=== PATIENT | male | born 1975 | race Caucasian/White ===

== ENCOUNTER → 2018-10-13 16:44 | Outpatient (CLI) | payer BC, SELFPAY ==
[2017-07-28 20:47] VITALS: BMI 36.9
[2018-10-13 19:14] LABS: Neisserai gonorrhoeae by PCR Negative (Negative); Probe Check PASS; Sample Adequacy Control PASS; Specimen Processing Control PASS
--- OUTSIDE RECORDS SUMMARY | 2018-12-18 16:35 | XMS RPT_ITS | Clinical Summary ---
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 Allergies, Adverse Reactions, Alerts Allergy Name Reaction Description Start Date Severity Status Provider PHENOBARBITAL Critical Active Steven S Marcus Results Date Name Value Unit Range Flag Description Office Visit MEDS REVIEW Done Documentation of current medications (procedure) NKMED T Documentation of current medications (procedure) SMOK STATUS Former smoker Tobacco use [facility] Plan of Care No information available. Procedures No information available. Vital Signs No information available.
--- OUTSIDE RECORDS SUMMARY | 2018-12-18 16:35 | XMS RPT_ITS ---
:1975 Author Organization [facility] Care Team Providers Name Role Phone Azar Mcfadden Attending Unavailable Azar Mcfadden Primary Care Unavailable PROBLEMS PROBLEMS No Problem Records FoundPROCEDURES PROCEDURES No Procedure Records FoundRESULTS RESULTS N GONORRHOEAE PCR ([facility]) Collected: 10/13/2018 Status: F Source: [place] 4:46 PM [facility] REPOSITORY TYPE CODE TESTS RESULT OUT OF RANGE REFERENCE UNITS LAB L8200.2200 Negative Normal NG by Negative PCR Performed By: #### L8200.2030 #### [facility] [address] [place], [address] ALLERGIES ALLERGIES DATE TYPE / CODE NAME / CODE REACTION SEVERITY SOURCE 07/28/2017 Drug phenobarbita Low platelets Unknown [facility] Allergy/4160 l/[id number] [facility] [address](SNOMED (RXNORM) Repository CT) ENCOUNTERS ENCOUNTERS ADMIT/DISCHARGE ACCOUNT ADMITTING ENCOUNTER LOCATION SOURCE NUMBER CLASS 10/13/2018 [id number] Ambulatory [facility] 0 [facility] ing:LABSPEC Repository PAYERS PAYERS ENCOUNTER GUARANTOR PAYER SUBSCRIBER SOURCE 10/13/2018 LETHA J Primary LETHA J Soledad [id number] Insurance:ANTHEMPolic AMYOB: [facility] [place]: [id number] [id number] Repository [address]Bhm: (851) Date:[id number] [phone] () [id number], [place] [address]FT: 10/13/2018 Secondary NOT GIVENUNK Sol[place]ad Insurance:SELF PAY Community [facility]: Effective Repository Date:2018-10-13
--- OUTSIDE RECORDS SUMMARY | 2018-12-18 16:35 | XMS RPT_ITS | Clinical Summary ---
:1975 Author Organization [facility] Address [address] [place] [address] Phone Care Team Providers Name Role Phone Jojo aFgan N Unavailable Conditions or Problems Problem Name Problem Onset Status Entry Provider Comment Standard Annotate Code Date Date Description Other internal [id number] Active Steven S Derangement of derangements of [...] (procedure) SMOK STATUS Former smoker Tobacco use [facility] Plan of Care No information available. Procedures Code Procedure Name Date Entry Date CPT-65908 Arthrocentesis, aspiration/injection; major joint shoulder, hip, knee Vital Signs No information available.
--- OUTSIDE RECORDS SUMMARY | 2018-12-18 16:35 | XMS RPT_ITS | Clinical Summary ---
:1975 Author Organization [facility], [facility] Address [address] [place] [address] Phone Care Team Providers Name Role Phone Jojo Fagan Unavailable Conditions or Problems No information available. Medications No information available. Medications Administered No information available. Allergies, Adverse Reactions, Alerts No information available. Results No information available. Plan of Care No information available. Procedures No information available. Vital Signs No information available.
--- OUTSIDE RECORDS SUMMARY | 2018-12-18 16:35 | XMS RPT_ITS | Clinical Summary ---
:1975 Author Organization [facility] Address [address] [place] [address] Phone Care Team Providers Name Role Phone Jojo Fagan N Unavailable Conditions or Problems Problem Name Problem Onset Status Entry Provider Comment Standard Annotate Code Date Date Description Other internal [id number] Active Steven S Derangement of derangements of [...] (procedure) SMOK STATUS Former smoker Tobacco use [facility] Plan of Care No information available. Procedures No information available. Vital Signs No information available.
--- OUTSIDE RECORDS SUMMARY | 2018-12-18 16:35 | XMS RPT_ITS | Clinical Summary ---
:1975 Author Organization [place] [email or web address] Address [address] [place] [address] Phone Care Team Providers Name Role Phone Jojo Fagan N Unavailable Conditions or Problems Problem Name Problem Onset Status Entry Provider Comment Standard Annotate Code Date Date Description Other internal [id number] Active Steven S Derangement of derangements of [...] (procedure) SMOK STATUS Former smoker Tobacco use [facility] Plan of Care No information available. Procedures Code Procedure Name Date Entry Date CPT-73080 Arthrocentesis, aspiration/injection; major joint shoulder, hip, knee Vital Signs No information available.
== END ==
LOC: MFPLAB 16:45 → LABSPEC 16:45
PROVIDERS: Family Provider Family Medicine; PCP Family Medicine; Visit Provider Family Medicine
DX: R30.0 Dysuria (principal)
CPT/HCPCS: 87591

== ENCOUNTER → 2019-07-06 10:38 | Outpatient (CLI) | payer BC, SELFPAY ==
[2017-07-28 20:47] VITALS: BMI 36.9
[2019-07-06 13:08] LABS: Anion Gap 7 (5-15); BUN 19 mg/dL (7-18); BUN/Creat Ratio 16.8 RATIO (10-20); Chloride 102 mmol/L (98-107); Cholesterol 183 mg/dL (200); Creatinine, Serum 1.13 mg/dL (0.70-1.30); EST Glomerular Filtration Rate 76 mL/min (>60); Est Glom Filt Rate - Afr Amer 92 mL/min (>60); Glucose 105 mg/dL (74-106); High Density Lipoprotein 31 mg/dL; Potassium 4.4 mmol/L (3.5-5.1); Sodium Level 138 mmol/L (136-145); Thyroid Stim Hormone (TSH) 1.05 uIU/mL (0.358-3.74); Triglycerides 655 mg/dL
== END ==
PROVIDERS: Family Provider Family Medicine; PCP Family Medicine; Referring Provider Family Medicine; Visit Provider Family Medicine
DX: Z00.00 Encounter for general adult medical examination without abnormal findings (principal); I10 Essential (primary) hypertension
CPT/HCPCS: 36415; 80048; 80061; 84403; 84443

== ENCOUNTER 2019-07-18 17:48 | Emergency (ER) | payer BC, SELFPAY ==
[2019-07-18 17:49] VITALS: BP 147/105; PULSE 69; RESP 16; TEMP 36.8; O2SAT 96; BMI 39.2
--- NOTE | 2019-07-18 18:03 | EKG12_ITS ---
Test Reason : CP Blood Pressure : / mmHG Vent. Rate : 057 BPM Atrial Rate : 057 BPM P-R Int : 164 ms QRS Dur : 100 ms QT Int : 406 ms P-R-T Axes : 017 -05 012 degrees QTc Int : 395 ms Sinus bradycardia with marked sinus arrhythmia Otherwise normal ECG Confirmed by MADHU LUGO, MEGAN ([id number]), editorial intern ANEL GARCIA ([id number]) on 07/22/2019 10:39:15 AM Referred By: Azar Mcfadden Confirmed By:MEGAN LEUNG MD
--- NOTE | 2019-07-18 18:03 | RAD_ITS ---
STUDY: X-RAY CHEST REASON FOR EXAM: Male, 43 years old. Jaw pain and shortness of breath TECHNIQUE: Frontal view of the chest was performed COMPARISON: None. FINDINGS: Lungs are clear. There is no pneumothorax, pulmonary edema, pleural effusions or cardiomegaly. Osseous structures are intact. There is no gas under the diaphragms. [ ] RAD/Chest 1 View (Portable) IMPRESSION: 1. No acute cardiorespiratory disease. [ ] Electronically Signed: Urvashi Melendez, at 18:22 EDT Tel , Service support ,
--- NOTE | 2019-07-18 18:04 | ED.DCSUM_ITS ---
History of Present Illness Chief Complaint: Other, Pain/Inj Detail of Chief Complaint: Headache, chest pain, short of breath Informant: Patient Onset: Today Current Severity: Mild Maximum Severity: Moderate Narrative: Patient presents with what he believes is a migraine. He has a history of migraines and currently takes propranolol for them. He states he has had some intermittent vision changes today that he typically gets with his migraines. He has a frontal headache. Today he also has some chest and jaw heaviness and feels short of breath with exertion. He has had increased stress recently. Past Medical History - Allergies and Home Meds Allergies/Adverse Reactions: Allergies phenobarbital Adverse Reaction (Verified 07/18/19 17:51) Low platelets Primary Care Physician: Azar Mcfadden MD [Primary Care Provider] - Prior records reviewed: Yes Past Medical History: - - Reviewed Lives: With Family Smoking Status: Never smoker Review of Systems General: Denies: Chills, Fever Eyes: Reports: Visual changes - bilaterally - Waxing and waning kaleidoscope appearance. ENT: Denies: Rhinorrhea, Sore throat Cardiovascular: Reports: Chest pain Respiratory: Reports: Dyspnea - Short of breath with exertion. Denies: Cough Gastrointestinal: Denies: Abdominal pain, Nausea, Vomiting Musculoskeletal: Denies: Neck pain, Back pain, Extremity Pain Skin: Denies: Rash Neurological: Reports: Headache. Denies: Weakness, Parasthesia, Numbness Hematologic: Denies: Easy bruising Allergy: Denies: Uticaria Physical Exam Vital Signs/Narrative: Vital Signs Temp Pulse Resp BP Pulse Ox 07/18/19 17:49 98.2 F 69 16 147/105 H 96 Inital Vital Signs reviewed: Yes General: Well nourished, Well developed Head: Normocephalic ENT: Moist mucous membranes Neck: Supple Cardiovascular: Regular rate, Regular rhythm Respiratory: No distress, CTA bilaterally, Chest nontender Abdomen: Soft, Nontender, Normal bowel sounds Extremities: Nontender Skin: Normal color, No rash Neurological: Alert, Oriented x3 Psychological: Normal affect Diagnostic/Tx/Re-eval Impressions Chest X-Ray 07/18/19 18:03 IMPRESSION: 1. No acute cardiorespiratory disease. [ ] Electronically Signed: Urvashi Melendez, at 18:22 EDT Tel , Service support , 07/18/19 18:03 Chest 1 View (Portable) [RAD] Stat Laboratory Results 07/18/19 07/18/19 18:10 18:10 WBC 6.8 RBC 5.06 Hgb 15.6 Hct 45.3 MCV 89.5 MCH 30.8 MCHC 34.4 RDW Std Deviation 40.6 RDW Coeff of Annabel 12.4 Plt Count 226 MPV 10.0 Immature Gran % (Auto) 0.300 Neut % (Auto) 57.2 Lymph % (Auto) 30.1 Jennings % (Auto) 7.4 Eos % (Auto) 4.1 Baso % (Auto) 0.9 Absolute Neuts (auto) 3.9 Absolute Lymphs (auto) 2.03 Nucleated RBC % 0 Sodium 137 Potassium 3.8 Chloride 103 Carbon Dioxide 30.0 Anion Gap 4 L BUN 15 Creatinine 1.07 Estim Creat Clear Calc 93.81 Est GFR (MDRD) Af Amer 98 Est GFR (MDRD) Non-Af 81 BUN/Creatinine Ratio 14.0 Glucose 105 Calcium 9.3 Troponin I < 0.015 - EKG Initial EKG Interpretation: Sinus Bradycardia - Sinus bradycardia at [address] change. - Medical Decision Making Patient reports having bad reaction to the Reglan and Benadryl combination in the past with migraine treatment. He was given Toradol and Phenergan. On repeat evaluation is resting comfortably. He states his headache is improved, but not completely resolved. I advised he and at bedside that his blood work, EKG, chest x-ray are all unremarkable. Patient's chest heaviness started while he was power washing, having bent over and then stood back up. Does not sound classic for angina. He had several hours of symptoms with normal blood work. I will speak with his PCP deanna to help arrange close follow-up. Patient is to call the office tomorrow. ED Disposition - Plan for ED Patient: Disposition: Home or Assisted Living Diagnosis: Migraine, Atypical chest pain Instructions: ED, Migraine (Classical), CHEST PAIN, Uncertain Cause Referrals: Azar Mcfadden MD [Primary Care Provider] - 3-5 Days
[2019-07-18 18:20] LABS: Absolute Lymphocyte Count 2.03 X10^3/uL (0.83-4.51); Absolute Neutrophil Count 3.9 X10^3/uL (2.0-7.7); Basophil# 0.06 X10^3/uL; Basophil% 0.9 % (0-1); Eosinophil# 0.28 X10^3/uL; Eosinophils% 4.1 % (0-5); Hematocrit 45.3 % (40-54); Hemoglobin 15.6 g/dL (13.0-16.5); Lymphocyte # 2.03 X10^3/ul (4.0); Lymphocyte % 30.1 % (19-41); Mean Corp Hgb Conc 34.4 g/dL (32-36); Mean Corpuscular Hgb 30.8 pg (27.0-32.0); Mean Corpuscular Volume 89.5 fL (80-94); Monocyte% 7.4 % (0-10); NRBC Flagged by Analyzer 0 % (0-5); Neutrophil # 3.86 X10^3/uL (2.7-7.7); Neutrophil % 57.2 % (47-70); Platelet Count 226 K/mm3 (150-450); RBC Distribution Width CV 12.4 % (11.6-14.6); RBC Distribution Width SD 40.6 fl (35.1-43.9); Red Blood Count 5.06 M/mm3 (4.6-6.2); White Blood Count 6.8 K/mm3 (4.4-11.0)
[2019-07-18] MEDS: Ketorolac 30 MG/ML Syringe IV (18:26)
[2019-07-18] MEDS: proMETHazine 25 MG/ML Syringe 12.5 MG IV (18:26)
[2019-07-18] MEDS: 0.9% Normal Saline 1,000 ML 150 ML IV (18:26)
[2019-07-18 18:41] LABS: Anion Gap 4 (5-15); BUN 15 mg/dL (7-18); Calcium,Total 9.3 mg/dL (8.5-10.1); Chloride 103 mmol/L (98-107); Creatinine, Serum 1.07 mg/dL (0.70-1.30); EST Glomerular Filtration Rate 81 mL/min (>60); Est Glom Filt Rate - Afr Amer 98 mL/min (>60); Estimated Creatinine Clearance 93.81 ml/min; Glucose 105 mg/dL (74-106); Potassium 3.8 mmol/L (3.5-5.1); Sodium Level 137 mmol/L (136-145)
[2019-07-18 18:58] VITALS: BP 138/70; PULSE 72; RESP 14; O2SAT 98
[2019-07-18 19:31] VITALS: BP 120/68; PULSE 61; RESP 16; O2SAT 98
--- NOTE | 2019-07-18 19:31 | ED.RN ---
REVIEWED D/C INSTRUCTIONS, FOLLOW UP CARE, AND S/S THAT WOULD WARRANT A RETURN TO THE ED WITH PT. PT VERBALIZED AN UNDERSTANDING AND DENIES FURTHER QUESTIONS FOR THIS RN. PT SKIN P/W/D, RESP EVEN AND UNLABORED, PT A&O X 3, NO DISTRESS NOTED. PT AMBULATED OUT OF ED, GAIT STEADY.
== END 2019-07-18 19:34 | disposition home or self-care (01) ==
PROVIDERS: Emergency Provider Emergency Medicine; Family Provider Family Medicine; PCP Family Medicine
DX: G43.909 Migraine, unspecified, not intractable, without status migrainosus (principal); R07.89 Other chest pain
CPT/HCPCS: 71045; 80048; 84484; 85025; 93005; 96361; 96374; 96375; 99284; A4216

== ENCOUNTER → 2019-11-01 15:06 | Outpatient (CLI) | payer BC, SELFPAY ==
--- NOTE | 2019-11-01 15:09 | US_ITS ---
INDICATION: Left testicular lump.. COMPARISON: None. TECHNIQUE: The scrotum was scanned in transverse and longitudinal planes. A combination of grayscale, B-mode and color Doppler imaging was utilized. FINDINGS: Right testicle: Measures 4.5 x 2.6 x 2.1 cm. Echotexture is homogeneous. There is no right testicular cyst or mass identified. Left testicle: Measures 4.0 x 2.5 x 2.1 cm. Echotexture is homogeneous. Within the left testis there is a calcific structure with shadowing artifact measuring 0.7 cm. This most likely represents dystrophic calcification, posttraumatic. There Otherwise there is no left testicular cyst or mass identified. Right epididymis: Measures 1.4 mm in length. No cyst or mass noted. Left epididymis: Measures 1.3 mm in length. No cyst or mass noted. Hydroceles: Small bilateral hydroceles.. Varicoceles: None. Flow: Doppler interrogation of both testes demonstrates normal arterial spectral waveform. There is no evidence of testicular torsion. US/Testicular with Arterial Flow IMPRESSION: Mild bilateral hydrocele. Left intratesticular calcification is described above with mild heterogeneity most commonly associated with the posttraumatic changes. Otherwise normal testicular ultrasound. Electronically Signed: Mady Tarango MD at 1:08 EST , Service support ,
== END ==
PROVIDERS: PCP Family Medicine; Referring Provider Family Medicine; Visit Provider Family Medicine
DX: N50.89 Other specified disorders of the male genital organs (principal)
CPT/HCPCS: 76870; 93976

== ENCOUNTER → 2020-01-25 09:21 | Outpatient (CLI) | payer BC, SELFPAY ==
[2020-01-25 10:03] LABS: Absolute Lymphocyte Count 2.43 X10^3/uL (0.83-4.51); Absolute Neutrophil Count 3.4 X10^3/uL (2.0-7.7); Basophil# 0.05 X10^3/uL; Basophil% 0.7 % (0-1); Eosinophil# 0.29 X10^3/uL; Eosinophils% 4.2 % (0-5); Hematocrit 46.3 % (40-54); Hemoglobin 15.2 g/dL (13.0-16.5); Lymphocyte # 2.43 X10^3/ul (4.0); Lymphocyte % 35.4 % (19-41); Mean Corp Hgb Conc 32.8 g/dL (32-36); Mean Corpuscular Volume 88.2 fL (80-94); Mean Platelet Vol. 10.2 fl (6.2-12.0); Monocyte# 0.65 X10^3/uL; Monocyte% 9.5 % (0-10); NRBC Flagged by Analyzer 0 % (0-5); Neutrophil # 3.42 X10^3/uL (2.7-7.7); Neutrophil % 49.9 % (47-70); Platelet Count 226 K/mm3 (150-450); RBC Distribution Width CV 12.9 % (11.6-14.6); RBC Distribution Width SD 41.7 fl (35.1-43.9); Red Blood Count 5.25 M/mm3 (4.6-6.2); White Blood Count 6.9 K/mm3 (4.4-11.0)
[2020-01-25 10:28] LABS: Anion Gap 7 (5-15); BUN 23 mg/dL (7-18); BUN/Creat Ratio 20.7 RATIO (10-20); Chloride 101 mmol/L (98-107); Creatinine, Serum 1.11 mg/dL (0.70-1.30); EST Glomerular Filtration Rate 77 mL/min (>60); Est Glom Filt Rate - Afr Amer 93 mL/min (>60); Glucose 102 mg/dL (74-106); Potassium 4.4 mmol/L (3.5-5.1); Sodium Level 135 mmol/L (136-145); Thyroid Stim Hormone (TSH) 1.39 uIU/mL (0.358-3.74)
== END ==
PROVIDERS: PCP Family Medicine; Referring Provider Family Medicine; Visit Provider Family Medicine
DX: R53.83 Other fatigue (principal)
CPT/HCPCS: 36415; 80048; 84403; 84443; 85025

== ENCOUNTER → 2020-03-05 09:09 | Outpatient (CLI) | payer BC, SELFPAY | PROVIDERS: PCP Family Medicine; Visit Provider Family Medicine | DX: R53.83 Other fatigue (principal) | CPT/HCPCS: 36415; 84403 ==

== ENCOUNTER → 2020-04-30 12:11 | Outpatient (CLI) | payer BC, SELFPAY ==
[2020-04-30 15:22] LABS: Anion Gap 6 (5-15); BUN 17 mg/dL (7-18); BUN/Creat Ratio 15.9 RATIO (10-20); Calcium,Total 8.8 mg/dL (8.5-10.1); Chloride 101 mmol/L (98-107); Creatinine, Serum 1.07 mg/dL (0.70-1.30); EST Glomerular Filtration Rate 80 mL/min (>60); Est Glom Filt Rate - Afr Amer 97 mL/min (>60); Glucose 109 mg/dL (74-106); Potassium 3.7 mmol/L (3.5-5.1); Sodium Level 136 mmol/L (136-145)
== END ==
PROVIDERS: PCP Family Medicine; Referring Provider Family Medicine; Visit Provider Family Medicine
DX: I10 Essential (primary) hypertension (principal)
CPT/HCPCS: 36415; 80048

== ENCOUNTER → 2021-06-04 | Outpatient (CLI) | payer BC, SELFPAY ==
[2021-06-06 20:08] LABS: Covid Inpatient test code BILL Performed (.)
== END | disposition home or self-care (01) ==
PROVIDERS: PCP Family Medicine; Visit Provider Family Medicine
DX: R51.9 Headache, unspecified (principal)
CPT/HCPCS: 87635; U0005; U0003

== ENCOUNTER → 2021-06-12 | Outpatient (CLI) | payer BC, SELFPAY | END | disposition home or self-care (01) | LOC: LABSPEC 16:58 | PROVIDERS: PCP Family Medicine; Referring Provider Family Medicine; Visit Provider Family Medicine | DX: U07.1 COVID-19 (principal) | CPT/HCPCS: 87635; U0005; U0003 ==

== ENCOUNTER 2022-01-13 08:53 | Outpatient (CLI) | payer OTHER, SELFPAY ==
[2022-01-13 10:39] LABS: ALB/GLOB Ratio 1.1 RATIO (0.9-2.4); AST(SGOT) 26 U/L (15-37); Alanine Aminotransfer ALT/SGPT 55 U/L (16-61); Albumin, Serum 4.2 g/dL (3.2-5.0); Alkaline Phosphatase 56 U/L (45-117); Anion Gap 6 (5-15); BUN 18 mg/dL (7-18); BUN/Creat Ratio 17.1 RATIO (10-20); Calcium,Total 8.9 mg/dL (8.5-10.1); Chloride 102 mmol/L (98-107); Cholesterol 191 mg/dL (200); Creatinine, Serum 1.05 mg/dL (0.70-1.30); EST Glomerular Filtration Rate 82 mL/min (>60); Est Glom Filt Rate - Afr Amer 99 mL/min (>60); Globulin 3.9 g/dL (2.2-4.2); Glucose 106 mg/dL (74-106); High Density Lipoprotein 35 mg/dL; Potassium 3.9 mmol/L (3.5-5.1); Protein, Total 8.1 g/dL (6.4-8.2); Sodium Level 136 mmol/L (136-145); Triglycerides 383 mg/dL; Very Low Density Lipoprotein 77 mg/dL (5-40)
== END 2022-01-13 23:59 | disposition home or self-care (01) ==
LOC: MTLAB 08:56
PROVIDERS: PCP Family Medicine; Referring Provider Family Medicine; Visit Provider Family Medicine
DX: E78.5 Hyperlipidemia, unspecified (principal); R53.83 Other fatigue
CPT/HCPCS: 36415; 80053; 80061; 84403

== ENCOUNTER 2024-08-30 17:50 | Inpatient (IN) | payer OTHER, SELFPAY ==
[2024-08-30 17:53] VITALS: BP 122/96; PULSE 117; RESP 18; TEMP 36.8; O2SAT 99; BMI 39.9
[2024-08-30] MEDS: Mag Hydrox/Al Hydrox/Simeth 30 ML UDC PO (18:49)
[2024-08-30] MEDS: Lidocaine 2% Viscous15 ML UDC 15 ML PO (18:49)
[2024-08-30] MEDS: Famotidine 200 MG/20 ML MDV 20 MG in 0.9% Normal Saline (Pres. free 8 ML 300 MG IV (18:52)
[2024-08-30 18:53] LABS: Absolute Lymphocyte Count 1.59 X10^3/uL (0.83-4.51); Absolute Neutrophil Count 12.2 X10^3/uL (2.0-7.7); Basophil# 0.05 X10^3/uL; Basophil% 0.3 % (0-1); Eosinophil# 0.11 X10^3/uL; Eosinophils% 0.7 % (0-5); Hematocrit 46.5 % (40-54); Hemoglobin 17.3 g/dL (13.0-16.5); Lymphocyte # 1.59 X10^3/ul (0.83-4.51); Lymphocyte % 10.6 % (19-41); Mean Corp Hgb Conc 37.2 g/dL (32-36); Mean Corpuscular Hgb 31.7 pg (27.0-32.0); Mean Corpuscular Volume 85.2 fL (80-94); Mean Platelet Vol. 10.3 fl (6.2-12.0); Monocyte# 0.98 X10^3/uL; Monocyte% 6.5 % (0-10); NRBC Flagged by Analyzer 0 % (0-5); Neutrophil # 12.23 X10^3/uL (2.7-7.7); Neutrophil % 81.5 % (47-70); Platelet Count 242 K/mm3 (150-450); RBC Distribution Width CV 12.7 % (11.6-14.6); RBC Distribution Width SD 38.5 fl (35.1-43.9); Red Blood Count 5.46 M/mm3 (4.6-6.2)
[2024-08-30 19:30] LABS: Bacteria 0 SEEN /hpf (None Seen); Mucous, Urine 0 SEEN /hpf (<or=2+); Red Blood Cells-Urine 0 SEEN /hpf (0-5); Squamous Epithelial Cells - UA 0 SEEN /hpf (0-5); White Blood Cells 0 SEEN /hpf (0-5)
[2024-08-30 19:31] LABS: Color, Urine Yellow (Yellow); Glucose, Dipstick Normal (Normal); Ketone-Dipstick 50 mg/dl (Negative); Leukocyte Esterase-Dipstick Negative /ul (Negative); Nitrite-Dipstick Negative (Negative); Occult Blood-Urine Negative /ul (Negative); Protein-Dipstick 15 mg/dl (Negative); Specific Gravity, Urine 1.015 (1.002-1.030); Urine Bilirubin Dipstick Negative (Negative); Urine Clarity Clear (Clear); Urine Urobilinogen Normal (Normal)
[2024-08-30 19:50] VITALS: BP 125/96; PULSE 128; RESP 18; O2SAT 98
[2024-08-30] MEDS: Ondansetron 4 MG/2 ML Vial IV (19:57)
[2024-08-30] MEDS: Morphine 4 MG/ML Syringe IV (19:57)
--- NOTE | 2024-08-30 20:28 | EDS_ITS ---
HPI History of Present Illness Chief Complaint: Abd Pain Detail of Chief Complaint: Upper abdominal pain that started several hours prior to presentation. It Informant: patient Onset/Context/Timing Onset: Today and Hours Context: Sudden Onset Timing: Continuous Quality: Crampy Location: Right and left upper abdomen Current Severity: Mild Maximum Severity: Severe Worsened by: Nothing specific Relieved by: Nothing Associated Symptoms Associated Symptoms: Nausea only Narrative Narrative: Patient is a 48-year-old male. He is status postcholecystectomy. He does have history of seizures as a child. He presents with bilateral upper abdominal pain that is colicky in nature with some radiation to the right flank area. He denies history of renal ureterolithiasis. Nuys dysuria, frequency, urgency or hematuria. He denies intolerance to greasy or fried foods. He denies cough, shortness of breath difficulty breathing. He denies pain with breathing. He denies history coronary disease. Denies any anginal equivalent or anginal type symptoms past 1 to 2 weeks. He denies history of VTE. He has no risk factors for VTE. Denies leg pain, swelling discoloration. There is no history of direct or indirect trauma. There is no history of IBD. states cholecystectomy was approximately 20 years ago. Prior similar symptoms: No Recent Illness/Hospitalization: No PFSH PFSH Medical History FH: cholecystectomy Home Medications ?Medication ?Instructions ?Recorded ?Last Taken ?Type lisinopril 10 mg tablet 10 mg PO DAILY 08/30/24 Unknown History Allergy/AdvReac Type Severity Reaction Status Date / Time phenobarbital AdvReac Low Verified 08/30/24 17:53 platelets Social History household members: spouse and children Smoking Status: Former smoker ROS ROS ED Constitutional Constitutional ED: Denies chills, fever(s) or subjective Eyes Eyes: Denies blurry vision or change in vision ENT ENT ED: Denies ear pain, rhinorrhea or sore throat Cardiovascular Cardiovascular: Denies chest pain, orthopnea, palpitations or paroxysmal nocturnal dyspnea Respiratory/Chest Respiratory/Chest: Denies cough, dyspnea, dyspnea on exertion, orthopnea or paroxysmal nocturnal dyspnea Gastrointestinal Gastrointestinal: Reports abdominal pain and nausea; Denies constipation, diarrhea, melena or vomiting Genitourinary Genitourinary ED: Denies dysuria, hematuria or urinary frequency Musculoskeletal Musculoskeletal: Denies back pain Integumentary Denies rash Neurologic Neurologic: Denies paresthesias or weakness Endocrine Endocrinology: Denies cold intolerance Hematologic/Lymphatic Hematologic/Lymphatic: Reports systems reviewed and no addt'l complaints, except as documented EXAM Physical Exam Const Vital Signs: 08/30/24 17:53 08/30/24 19:50 08/30/24 20:57 Temperature 98.2 F 99.4 F H Temperature Source Temporal Oral Pulse Rate 117 H 128 H 117 H Respiratory Rate 18 18 16 Blood Pressure 122/96 H 125/96 H 122/73 H Blood Pressure Mean 104 105 89 Pulse Ox 99 98 97 Oxygen Delivery Method Room Air Room Air Room Air Positive well nourished and well developed Constitutional Narrative: Patient appears uncomfortable. He is tachycardic. He is not febrile or hypoxic. General Appearance ED: well developed; Negative for NAD or pallor HEENT Reports dry mucous membranes HEENT Narrative: Head is atraumatic normocephalic. Ears normal. Nares patent. Mouth ED: Yes dry mucous membranes Mouth: dry mucous membranes Eyes PERRL and EOMs intact bilaterally General Eye ED: Negative for pale conjunctiva or scleral icterus Neck no lymphadenopathy, supple and no JVD Chest Wall inspection of chest normal and palpation of chest normal Resp normal respiratory effort and clear to auscultation bilaterally Cardio regular rate, regular rhythm, S1 normal heart sound, S2 normal heart sound and no murmurs GI non-distended and no masses; Negative for non-tender or hepatosplenomegaly Auscultation: hypoactive bowel sounds Palpation: soft and tender epigastric (Epigastrium is the area of maximal tenderness.), LUQ, RUQ and Camarillo's sign (Negative Camarillo sign.) Back/Spine no CVA tenderness Extremity normal to inspection Extremity Narrative: There is no asymmetry, swelling, discoloration, leg vein distention, palpable cords or tenderness along the distribution of the deep venous system. General Extremety ED: Negative for edema or tenderness General Extremity: Negative for edema Neuro oriented x3 and CN's II-XII intact bilaterally Sensorium / Orientation: alert Skin no rashes or lesions noted, no wounds and skin turgor normal General Skin Exam: elasticity normal; Negative for jaundice or pallor MDM MDM MDM Narrative Medical decision making narrative: Differential diagnosis would include choledocholithiasis, peptic ulcer disease, esophagitis, atypical presentation for cardiac disease. Will obtain CBC, competence of metabolic panel, UA and lipase. Patient was medicated with Zofran and morphine for his pain after he reports no improvement with GI cocktail and IV Pepcid. Lab Data Attestation: I reviewed the patient's lab results. Lab results narrative: White count is elevated with slight shift. Urinalysis is negative. Competence of metabolic panel is remarked for glucose of 166 with normal CO2 anion gap. AST is slight elevated 88. ALT is 60. Lipase is 617 patient states he drank heavily when he was younger. He had 1 drink this past weekend. He does not have a history of pancreatitis. Labs: Laboratory Results - last 24 hr 08/30/24 08/30/24 18:36 19:20 WBC 15.0 H RBC 5.46 Hgb 17.3 H Hct 46.5 MCV 85.2 MCH 31.7 MCHC 37.2 H RDW Std Deviation 38.5 RDW Coeff of Annabel 12.7 Plt Count 242 MPV 10.3 Immature Gran % (Auto) 0.400 Neut % (Auto) 81.5 H Lymph % (Auto) 10.6 L [place] % (Auto) 6.5 Eos % (Auto) 0.7 Baso % (Auto) 0.3 Absolute Neuts (auto) 12.2 H Absolute Lymphs (auto) 1.59 Nucleated RBC % 0 Sodium 130 L Potassium 5.2 H Chloride 98 Carbon Dioxide 21.0 Anion Gap 10 BUN 18 Creatinine 1.10 Estim Creat Clear Calc 115.21 Est GFR (MDRD) Af Amer 92 Est GFR (MDRD) Non-Af 76 BUN/Creatinine Ratio 16.4 Glucose 166 H Calcium 9.0 Total Bilirubin 0.80 AST 88 H ALT 60 Alkaline Phosphatase 69 Troponin I High Sens < 3 L Total Protein 8.0 Albumin 3.9 Globulin 4.1 Albumin/Globulin Ratio 1.0 Lipase 617 H Urine Color Yellow Urine Clarity Clear Urine pH 6.0 Ur Specific [place] 1.015 Urine Protein 15 H Urine Glucose (UA) Normal Urine Ketones 50 H Urine Occult Blood Negative Urine Nitrite Negative Urine Bilirubin Negative Urine Urobilinogen Normal Ur Leukocyte Esterase Negative Urine RBC 0 SEEN Urine WBC 0 SEEN Ur Squamous Epith Cells 0 SEEN Urine Bacteria 0 SEEN Urine Mucus 0 SEEN Triglyceride is 1333. First and second troponin were less than 3. Suspect patient's pain is due to acute pancreatitis and may be due to elevated triglyceride level. Radiography Diagnostic Testing: Clinical Impression(s) from Imaging Studies Abdomen/Pelvis CT 08/30/24 20:45 IMPRESSION: Mild peripancreatic edema. Pancreatitis is suspected in the proper clinical settings. Electronically Signed: Heriberto Cleaning DO at 22:18 EST Reading Location ID and State: [facility] / [place] Tel [phone], Service support , CT of the abdomen pelvis with IV contrast was reviewed by me. The lower lung beaver are normal. There is no evidence of pneumoperitoneum. The liver appears normal. Spleen appears normal. Kidneys appear normal. There is no obvious inflammatory changes. There appears to be abnormality of the pancreas. Awaiting formal read by radiologist, 2115 Management Discussion w/another healthcare provider: Hospitalist (Spoke with Dr. Juarez. If CAT scan does not show anything significant plan is to admit MedSurg at [facility] otherwise will require transfer.) Treatment and Re-Evaluation :: Will contact the hospitalist. Will get a CAT scan of the abdomen. Patient still having pain. Additional dose of morphine was ordered. Discharge Plan Dx/Rx/DC Orders Clinical Impression: Acute pancreatitis, Sinus tachycardia, Acute dehydration, Elevated cholesterol with high triglycerides Disposition Disposition: Acute Care Hospital [facility]
[2024-08-30 20:31] LABS: AST(SGOT) 88 U/L (15-37); Alanine Aminotransfer ALT/SGPT 60 U/L (16-61); Albumin, Serum 3.9 g/dL (3.2-5.0); Alkaline Phosphatase 69 U/L (45-117); Anion Gap 10 (5-15); BUN 18 mg/dL (7-18); BUN/Creat Ratio 16.4 RATIO (10-20); Chloride 98 mmol/L (98-107); EST Glomerular Filtration Rate 76 mL/min (>60); Est Glom Filt Rate - Afr Amer 92 mL/min (>60); Estimated Creatinine Clearance 115.21 ml/min; Globulin 4.1 g/dL (2.2-4.2); Glucose 166 mg/dL (74-106); Lipase 617 U/L (13-75); Potassium 5.2 mmol/L (3.5-5.1); Sodium Level 130 mmol/L (136-145); Troponin-I HS (w/2H Reflex) < 3 pg/mL (3.0-78.0)
--- NOTE | 2024-08-30 20:45 | CT_ITS ---
STUDY: CT ABDOMEN AND PELVIS WITH CONTRAST REASON FOR EXAM: Male, 48 years old. Upper abdominal pain, elevated lipase RADIATION DOSAGE (If Supplied By Facility): CTDIvol = ( 15.32 ) mGy, DLP = ( 1330.65 ) mGycm TECHNIQUE: Transaxial images were obtained from the dome of the diaphragm to the symphysis pubis without oral contrast. IV 100mL Isovue-300 was administered. Sagittal and coronal images were reconstructed. Individualized dose optimization techniques were used for this CT. COMPARISON: None. FINDINGS: The visualized lung bases are unremarkable. The visualized portions of the heart are within normal limits. Normal liver. Nonvisualization of the gallbladder. No dilatation of the extrahepatic biliary system. Normal spleen. Mild peripancreatic edema. Normal bilateral adrenal glands. Normal right kidney. Normal left kidney. Normal visualized stomach. Normal small intestine. Normal colon. The appendix is nonvisualized. Normal abdominal aorta. Normal inferior vena cava. Normal retroperitoneum. Normal urinary bladder. Normal abdominal wall. Normal osseous structures. CT/Abdomen/Pelvis W IV Cont ONLY IMPRESSION: Mild peripancreatic edema. Pancreatitis is suspected in the proper clinical settings. Electronically Signed: Heriberto Cleaning DO at 22:18 EST ,
[2024-08-30 20:46] LABS: Reflex Troponin-HS? (from REC) Y
[2024-08-30] MEDS: morphine 8 MG/ML Syringe IV (20:54)
[2024-08-30] MEDS: 0.9% Normal Saline (1000mL) 1,000 ML 1000 ML IV (20:54)
--- NOTE | 2024-08-30 20:54 | HP.PCM.HOS_ITS ---
[facility] - General General Date of Admission: 08/30/24 Date of Service: 08/30/24 Chief Complaint: Abdominal Pain and Nausea. HPI Narrative LETHA OSMAN, is a 48 M with a past medical history of seizures as a child, listed allergy to phenobarbital (thrombocytopenia), former tobacco abuse, obesity; with BMI of 39.9 this admission, history of known dyslipidemia with hypertriglyceridemia in the ~700 mg/dL range and remote history of cholecystectomy (~1999) who presents to [facility] ER complaining of abdominal pain and nausea. Mr. Osman reports his symptoms began a few hours prior to admission with the abrupt-onset of continuous, cramping abdominal pain that was focused mainly in the Right and Left upper abdomen with radiation into his Right flank. He stated nothing seems to make the pain better or worse. He denies recent abdominal trauma, intolerance to greasy or fried foods, recent alcohol abuse or a known personal history of pancreatitis, ureterolithiasis, known CAD or similar previous episodes. He also denies associated fever, chills, vomiting, chest pain, shortness of breath, cough, diarrhea, constipation, blood in stools, dysuria or back pain. In the ER he was noted to have a highly elevated serum lipase of 617 U/L consistent with suspected Acute Pancreatitis due Hypertriglyceridemia of 1,333 mg/dL with leukocytosis of 15K, AST of 88, ALT of 60 and mild Hypokalemia of 5.2 mmol/L present on admission complicated by clinical evidence of Intractable Abdominal Pain requiring multiple doses of IV morphine and he was then admitted to the general medical floor for ongoing care for stay that is expected to extend beyond 2 midnights. REPLACED BY [facility] Medical History (Updated 08/30/24 @ 22:49 by Barbara Shelton) HTN (hypertension) Seizure FH: cholecystectomy Home Medications ?Medication ?Instructions ?Recorded ?Last Taken ?Type lisinopril 10 mg tablet 10 mg PO DAILY bp 08/30/24 Unknown History Allergy/AdvReac Type Severity Reaction Status Date / Time phenobarbital AdvReac Low Verified 08/30/24 17:53 platelets Social History household members: spouse and children Smoking Status: Former smoker ROS ROS Narrative Review of Systems: Constitutional: Denies fever or chills. Eyes: Patient denies changes in vision or discharge from eyes. ENT: Patient denies runny nose, sore throat or ear pain. Resp: Patient denies shortness of breath or cough. CV: Patient denies chest pain, palpitations or heart racing. GI: Patient admits to abdominal pain focused in the upper abdomen and radiating to the Right flank with nausea as per HPI. Patient denies diarrhea, constipation, melena or vomiting. : Patient denies dysuria, hematuria or urinary frequency. MSK: Patient denies arthralgias or myalgias. Skin: Patient denies rash, abscess or jaundice. Psych: Patient denies symptoms of uncontrolled depression or anxiety. Neuro: Patient denies headache, paresthesias or focal neurologic deficits. Allergy: Patient denies lip swelling, tongue swelling or urticaria. Hematology: Patient denies easy bleeding or easy bruisability. Endocrinology: Patient denies polyuria, polydipsia or polyphagia. 14 point review of systems otherwise negative except for positives noted above in HPI. Vital Signs Vital Signs Vital Signs: 08/30/24 17:53 08/30/24 19:50 Temperature 98.2 F Temperature Source Temporal Pulse Rate 117 H 128 H Respiratory Rate 18 18 Blood Pressure 122/96 H 125/96 H Blood Pressure Mean 104 105 Pulse Ox 99 98 Oxygen Delivery Method Room Air Room Air Weight Weight: 286 lb Body Mass Index (BMI) 39.9 Physical Exam Const alert and oriented x3 Constitutional Narrative: Patient is significantly obese and appears to be in moderate distress. General Appearance: cooperative HEENT normocephalic, head/scalp atraumatic and hearing grossly normal bilaterally HEENT Narrative: Mucous membranes dry. Eyes PERRL and EOMs intact bilaterally Neck no lymphadenopathy and supple Resp normal respiratory effort, no retractions, no use of accessory muscles and clear to auscultation bilaterally Cardio regular rate and regular rhythm GI soft to palpation and non-distended GI Narrative: Positive tenderness to palpation in the epigastrium with hypoactive bowel sounds. Negative [place]ar[place]'s sign. Auscultation: hypoactive bowel sounds Palpation: tender epigastric Extremity normal to inspection, full ROM and no clubbing, cyanosis or edema Skin Skin Narrative: Patient has no evidence of rash, abscess or jaundice. Neuro oriented x3, CN's II-XII intact bilaterally, moves all extremities and no focal motor deficits Sensorium / Orientation: awake, alert, oriented to person, oriented to place and oriented to time Speech: speech normal Psych affect normal Results Medical Records Data Attestation: I reviewed the patient's medical records Lab / Micro Data Attestation: I reviewed the patient's lab results. 08/30/24 18:36 08/30/24 18:36 Labs: Laboratory Results - last 24 hr 08/30/24 18:36: WBC 15.0 H, RBC 5.46, Hgb 17.3 H, Hct 46.5, MCV 85.2, MCH 31.7, MCHC 37.2 H, RDW Std Deviation 38.5, RDW Coeff of Annabel 12.7, Plt Count 242, MPV 10.3, Immature Gran % (Auto) 0.400, Neut % (Auto) 81.5 H, Lymph % (Auto) 10.6 L, Clinch % (Auto) 6.5, Eos % (Auto) 0.7, Baso % (Auto) 0.3, Absolute Neuts (auto) 12.2 H, Absolute Lymphs (auto) 1.59, Nucleated RBC % 0, Sodium 130 L, Potassium 5.2 H, Chloride 98, Carbon Dioxide 21.0, Anion Gap 10, BUN 18, Creatinine 1.10, Estim Creat Clear Calc 115.21, Est GFR (MDRD) Af Amer 92, Est GFR (MDRD) Non-Af 76, BUN/Creatinine Ratio 16.4, Glucose 166 H, Calcium 9.0, Total Bilirubin 0.80, AST 88 H, ALT 60, Alkaline Phosphatase 69, Troponin I High Sens < 3 L, Total Protein 8.0, Albumin 3.9, Globulin 4.1, Albumin/Globulin Ratio 1.0, Lipase 617 H 08/30/24 19:20: Urine Color Yellow, Urine Clarity Clear, Urine pH 6.0, Ur Specific [place] 1.015, Urine Protein 15 H, Urine Glucose (UA) Normal, Urine Ketones 50 H, Urine Occult Blood Negative, Urine Nitrite Negative, Urine Bilirubin Negative, Urine Urobilinogen Normal, Ur Leukocyte Esterase Negative, Urine RBC 0 SEEN, Urine WBC 0 SEEN, Ur Squamous Epith Cells 0 SEEN, Urine Bacteria 0 SEEN, Urine Mucus 0 SEEN Imaging [facility] Imaging Services [address] [place] [address] Abdomen/Pelvis W IV Cont ONLY MR#: [id number] Acct: [id number] Name: LETHA OSMAN Rep #: [id number] : 1975 M 48 From: Heriberto Cleaning DO PCP: Dr. Azar Mcfadden MD Status: ADM IN Study: Abdomen/Pelvis W IV Cont ONLY Date of Exam: 08/30/24 Exam# [id number] Ordering Dr: Mika Houser MD STUDY: CT ABDOMEN AND PELVIS WITH CONTRAST REASON FOR EXAM: Male, 48 years old. Upper abdominal pain, elevated lipase RADIATION DOSAGE (If Supplied By Facility): CTDIvol = ( 15.32 ) mGy, DLP = ( 1330.65 ) mGycm TECHNIQUE: Transaxial images were obtained from the dome of the diaphragm to the symphysis pubis without oral contrast. IV 100mL Isovue-300 was administered. Sagittal and coronal images were reconstructed. Individualized dose optimization techniques were used for this CT. COMPARISON: None. FINDINGS: The visualized lung bases are unremarkable. The visualized portions of the heart are within normal limits. Normal liver. Nonvisualization of the gallbladder. No dilatation of the extrahepatic biliary system. Normal spleen. Mild peripancreatic edema. Normal bilateral adrenal glands. Normal right kidney. Normal left kidney. Normal visualized stomach. Normal small intestine. Normal colon. The appendix is nonvisualized. Normal abdominal aorta. Normal inferior vena cava. Normal retroperitoneum. Normal urinary bladder. Normal abdominal wall. Normal osseous structures. CT/Abdomen/Pelvis W IV Cont ONLY IMPRESSION: Mild peripancreatic edema. Pancreatitis is suspected in the proper clinical settings. Electronically Signed: Heriberto Cleaning DO at 22:18 EST Reading Location ID and State: [facility] / MD Tel [phone], Service support , CC: Dr. Azar Mcfadden MD; Dr. Mika Houser MD ~ Creative Resource Manager: Signed Assessment & Plan Assessment/Plan (1) Acute pancreatitis: QUALIFIERS: Acute pancreatitis complication: unspecified P ancreatitis type: unspecified pancreatitis type Qualified Code(s): K85.90 - Acute pancreatitis without necrosis or infection, unspecified (2) Elevated cholesterol with high triglycerides: (3) Intractable abdominal pain: (4) Hyperkalemia: (5) Obesity (BMI 30-39.9): (6) History of cholecystectomy: PLAN: Plan 1. Highly elevated serum lipase of 617 U/L consistent with suspected Acute Pancreatitis with Hypertriglyceridemia of 1,333 mg/dL and leukocytosis of 15K, AST of 88 U/L and ALT of 60 U/L in the setting of known previous cholecystectomy (~1999) - Admit to general medical floor. Keep strict NPO. Give NS IVF @ 150 cc/hr. Start insulin drip at lowest rate and monitor for improvement. Start Protonix 40 mg IV daily. Give Zofran IV prn for nausea or vomiting. Give Phenergan IM for breakthrough nausea and vomiting. Checked STAT lipid profile to evaluate for suspected hypertriglyceridemia with patient started on D10 and insulin drip. CT scan of the abdomen and pelvis ordered in ER was positive for evidence of pancreatitis. Elevated WBC suspected to be due to acute stress response with no active signs of infection noted at this time. 2. Intractable abdominal pain requiring several doses of IV morphine complicating #1 - Give Dilaudid 0.5 mg IV q. 4 hours prn for severe (level 6- 10/10) pain. 3. Hyperkalemia of 5.2 mmol/L present on admission compounding #1 & #2 - Give NS IVF and recheck level in the AM to ensure improvement. 4. Obesity; with BMI of 39.9 this admission - Weight loss will be recommended. Check TSH. This complicates his case and may hamper recovery. 4. History of seizures as a child - Noted. 5. Listed allergy to phenobarbital (thrombocytopenia) - Noted. 6. Former tobacco abuse - Noted. 7. DVT prophylaxis - Lovenox 40 mg sq daily. Total time: Approximately (but not less than) 55 minutes. Charges/Coding Visit Charges Inpatient E&M: 55617 Init Hosp L2
[2024-08-30 20:57] VITALS: BP 122/73; PULSE 117; RESP 16; TEMP 37.4; O2SAT 97
[2024-08-30 22:01] LABS: Cholesterol 214 mg/dL (200); High Density Lipoprotein 30 mg/dL; Magnesium 2.1 mg/dL (1.6-2.6); Phosphorus 2.6 mg/dL (2.5-4.9); Triglycerides 1333 mg/dL; Troponin-I HS < 3 pg/mL (3.0-78.0)
[2024-08-30 22:47] VITALS: BMI 39.2
[2024-08-30 22:52] VITALS: BP 126/80; PULSE 118; RESP 18; TEMP 36.6; O2SAT 98
[2024-08-30] MEDS: 0.9% Normal Saline (1000mL) 1,000 ML 150 ML IV (22:58)
[2024-08-30] MEDS: Pantoprazole Sodium 40 MG in 0.9% Normal Saline (100mL MB+) 100 ML 330 MG IV (22:59)
[2024-08-30] MEDS: 0.9% Saline Lock 10 ML Syringe IV (23:27)
[2024-08-30] MEDS: Ketorolac 15 MG/ML Vial IV (23:27)
[2024-08-30 23:31] VITALS: O2SAT 97
[2024-08-30] MEDS: proMETHazine 25 MG/ML Syringe 12.5 MG IM (23:36)
[2024-08-30 23:41] LABS: Alcohol, Blood (Medical)-Serum < 3.0 mg/dL
[2024-08-31] VITALS (7 sets, daily range): BP systolic 120–138; BP diastolic 71–87; PULSE 95–109; RESP 18–27; TEMP 36.4–37.6; O2SAT 94–97
[2024-08-31] MEDS: Insulin Lispro 100 UNIT in 0.9% Normal Saline (100mL Bag) 99 ML 13 UNIT CONT INF (00:05)
[2024-08-31 00:45] LABS: Bedside Glucose 126 mg/dL (74-106)
[2024-08-31] MEDS: Dextrose 10%-Water 250 ML 70 ML IV (02:20)
[2024-08-31] MEDS: Ketorolac 15 MG/ML Vial IV ×4 (03:18→22:25)
[2024-08-31] MEDS: Dextrose 10%-Water 250 ML 125 ML IV (06:30)
[2024-08-31 06:31] LABS: Bedside Glucose 106 mg/dL (74-106)
[2024-08-31 06:31] LABS: Bedside Glucose 133 mg/dL (74-106)
[2024-08-31 06:31] LABS: Bedside Glucose 90 mg/dL (74-106)
[2024-08-31 06:31] LABS: Bedside Glucose 67 mg/dL (74-106)
[2024-08-31 06:31] LABS: Bedside Glucose 74 mg/dL (74-106)
[2024-08-31 07:17] LABS: Bedside Glucose 73 mg/dL (74-106)
[2024-08-31 07:17] LABS: Bedside Glucose 95 mg/dL (74-106)
[2024-08-31 07:36] LABS: Absolute Neutrophil Count 7.6 X10^3/uL (2.0-7.7); Basophil# 0.03 X10^3/uL; Basophil% 0.3 % (0-1); Eosinophil# 0.07 X10^3/uL; Eosinophils% 0.7 % (0-5); Hematocrit 43.5 % (40-54); Hemoglobin 14.8 g/dL (13.0-16.5); Lymphocyte % 15.9 % (19-41); Mean Corpuscular Hgb 29.9 pg (27.0-32.0); Mean Corpuscular Volume 87.9 fL (80-94); Mean Platelet Vol. 10.5 fl (6.2-12.0); Monocyte% 7.9 % (0-10); NRBC Flagged by Analyzer 0 % (0-5); Neutrophil # 7.56 X10^3/uL (2.7-7.7); Platelet Count 199 K/mm3 (150-450); RBC Distribution Width SD 41.6 fl (35.1-43.9); Red Blood Count 4.95 M/mm3 (4.6-6.2); White Blood Count 10.1 K/mm3 (4.4-11.0)
--- NOTE | 2024-08-31 07:45 | PCM.PN.HOSP ---
Reason for Visit Reason for Visit: Diagnoses Obesity, unspecified (08/30/24) Mixed hyperlipidemia (08/30/24) Hyperkalemia (08/30/24) Acute pancreatitis without necrosis or infection, unspecified (08/30/24) Unspecified abdominal pain (08/30/24) Acquired absence of other specified parts of digestive tract (08/30/24) Subjective Subjective Patient is a 48-year-old gentleman who presented with abdominal pain and nausea was found to have elevated lipase levels consistent with acute pancreatitis admitted to monitored bed for further management Objective Data Objective Data Vital Signs: Vital Signs Temp Pulse Resp BP Pulse Ox O2 Del Method 97.5 F L 109 H 23 H 130/85 H 97 Room Air 08/31/24 00:00 08/31/24 00:00 08/31/24 00:00 08/31/24 00:00 08/31/24 00:00 08/31/24 04:00 Oxygen Delivery Method Room Air Weight: 127.8 kg Body Mass Index (BMI) 39.2 Intake & Output: Intake and Output for Last 24 Hours 08/29/24 08/30/24 08/31/24 23:59 23:59 23:59 Intake Total 1010 / 1120 199.92 / 199.92 Balance 1010 / 1120 199.92 / 199.92 Lab / Micro Data 08/31/24 03:30 08/30/24 18:36 Labs: Laboratory Results - last 24 hr 08/30/24 18:36: WBC 15.0 H, RBC 5.46, Hgb 17.3 H, Hct 46.5, MCV 85.2, MCH 31.7, MCHC 37.2 H, RDW Std Deviation 38.5, RDW Coeff of Annabel 12.7, Plt Count 242, MPV 10.3, Immature Gran % (Auto) 0.400, Neut % (Auto) 81.5 H, Lymph % (Auto) 10.6 L, Gibson % (Auto) 6.5, Eos % (Auto) 0.7, Baso % (Auto) 0.3, Absolute Neuts (auto) 12.2 H, Absolute Lymphs (auto) 1.59, Nucleated RBC % 0, Sodium 130 L, Potassium 5.2 H, Chloride 98, Carbon Dioxide 21.0, Anion Gap 10, BUN 18, Creatinine 1.10, Estim Creat Clear Calc 115.21, Est GFR (MDRD) Af Amer 92, Est GFR (MDRD) Non-Af 76, BUN/Creatinine Ratio 16.4, Glucose 166 H, Calcium 9.0, Total Bilirubin 0.80, AST 88 H, ALT 60, Alkaline Phosphatase 69, Troponin I High Sens < 3 L, Total Protein 8.0, Albumin 3.9, Globulin 4.1, Albumin/Globulin Ratio 1.0, Lipase 617 H 08/30/24 19:20: Urine Color Yellow, Urine Clarity Clear, Urine pH 6.0, Ur Specific [place] 1.015, Urine Protein 15 H, Urine Glucose (UA) Normal, Urine Ketones 50 H, Urine Occult Blood Negative, Urine Nitrite Negative, Urine Bilirubin Negative, Urine Urobilinogen Normal, Ur Leukocyte Esterase Negative, Urine RBC 0 SEEN, Urine WBC 0 SEEN, Ur Squamous Epith Cells 0 SEEN, Urine Bacteria 0 SEEN, Urine Mucus 0 SEEN 08/30/24 21:20: Phosphorus 2.6, Magnesium 2.1, Troponin I High Sens < 3 L, Triglycerides 1333 H, Cholesterol 214 H, LDL Cholesterol TNP, VLDL Cholesterol TNP, HDL Cholesterol 30 L, TSH 1.430 08/30/24 21:59: Ethyl Alcohol < 3.0 08/31/24 00:08: POC Glucose 126 H 08/31/24 01:15: POC Glucose 95 08/31/24 02:04: POC Glucose 67 L 08/31/24 03:03: POC Glucose 133 H 08/31/24 03:30: WBC 10.1, RBC 4.95, Hgb 14.8, Hct 43.5, MCV 87.9, MCH 29.9, MCHC 34.0 D, RDW Std Deviation 41.6, RDW Coeff of Annabel 13.0, Plt Count 199, MPV 10.5, Immature Gran % (Auto) 0.200, Neut % (Auto) 75.0 H, Lymph % (Auto) 15.9 L, Gibson % (Auto) 7.9, Eos % (Auto) 0.7, Baso % (Auto) 0.3, Absolute Neuts (auto) 7.6, Absolute Lymphs (auto) 1.60, Nucleated RBC % 0 08/31/24 03:59: POC Glucose 106 08/31/24 05:00: POC Glucose 90 08/31/24 06:02: POC Glucose 74 08/31/24 07:00: POC Glucose 73 L Radiography Diagnostic Testing: Radiology Impression Abdomen/Pelvis CT 08/30/24 20:45 IMPRESSION: Mild peripancreatic edema. Pancreatitis is suspected in the proper clinical settings. Electronically Signed: Heriberto Cleaning DO at 22:18 EST Reading Location ID and State: [facility] / [place] Tel [phone], Service support , Physical Exam Narrative GENERAL: cooperative HEENT: Atraumatic; normocephalic EYES; Anicteric, Normal Conjunctiva NECK; supple, normal thyroid, RESPIRATORY: Diminished to auscultation CARDIOVASCULAR: Regular S1 S2, GI: soft, normoactive bowel sounds, : No Renal angle tenderness; EXTREMITIES: No edema, no clubbing, MUSCULOSKELETAL: no muscle wasting NEURO: Awake; no lateralizing signs. SKIN: No Rash PSYCH; Flat affect Assessment & Plan Assessment/Plan (1) Acute pancreatitis: QUALIFIERS: Acute pancreatitis complication: unspecified Pancreatitis type: unspecified pancreatitis type Qualified Code(s): K85.90 - Acute pancreatitis without necrosis or infection, unspecified (2) Elevated cholesterol with high triglycerides: (3) Intractable abdominal pain: (4) Hyperkalemia: (5) Obesity (BMI 30-39.9): (6) History of cholecystectomy: PLAN: Plan Patient is a 48-year-old gentleman who presented with abdominal pain and nausea was found to have elevated lipase levels consistent with acute pancreatitis admitted to monitored bed for further management 1. Acute pancreatitis ? Secondary to hypertriglyceridemia and alcohol use. Patient was admitted to the intensive care unit managed conservatively with bowel rest pain meds antinausea medication and subsequent monitoring with serial lipase levels ordered 2. Hypertriglyceridemia -patient was managed appropriately with insulin and D10. 3. Hyperkalemia ? Secondary to use of lisinopril, resolved repeat BMP ordered for monitor 4. Essential hypertension ? Patient is on lisinopril held on admission due to hyperkalemia resumed 5. Class II obesity with BMI of 39.9 ? Weight loss advised 6. DVT prophylaxis ? SC Lovenox Time spent in the patient's overall evaluation,decision-making process, review of diagnostic data, adjustment of management, discussion with other providers, nursing nursing and ancillary staff involved in patient's care documentation, 50 Minutes Charges/Coding Visit Charges Inpatient E&M: 36503 Subs Hosp L3
[2024-08-31 08:25] LABS: Bedside Glucose 78 mg/dL (74-106)
[2024-08-31 08:55] LABS: AST(SGOT) 61 U/L (15-37); Alanine Aminotransfer ALT/SGPT 78 U/L (16-61); Albumin, Serum 3.4 g/dL (3.2-5.0); Alkaline Phosphatase 57 U/L (45-117); Anion Gap 4 (5-15); BUN 12 mg/dL (7-18); BUN/Creat Ratio 11.2 RATIO (10-20); Calcium,Total 8.8 mg/dL (8.5-10.1); Chloride 103 mmol/L (98-107); Creatinine, Serum 1.07 mg/dL (0.70-1.30); EST Glomerular Filtration Rate 79 mL/min (>60); Est Glom Filt Rate - Afr Amer 95 mL/min (>60); Globulin 3.3 g/dL (2.2-4.2); Glucose 74 mg/dL (74-106); Potassium 4.1 mmol/L (3.5-5.1); Protein, Total 6.7 g/dL (6.4-8.2); Sodium Level 135 mmol/L (136-145)
[2024-08-31 09:06] LABS: Magnesium 2.4 mg/dL (1.6-2.6); Phosphorus 3.6 mg/dL (2.5-4.9)
[2024-08-31 09:19] LABS: Triglycerides 500 mg/dL
--- NOTE | 2024-08-31 09:48 | CASEMGMT ---
HARINDER CORONA Assessment Face to Face with patient for initial transition planning/care coordination assessment. HARINDER CORONA introduced self and role at [facility], pt voices understanding. Pt is A&Ox4 and is resting comfortably in bed and is calm. Care providers, pharmacy, and demographics verified. Admitting dx: Acute Pancreatitis LACE Strata: 1 PCP: Azar Mcfadden Specialists: Denies Preferred Pharmacy: [facility] Insurance: [employer] Prescription Benefit: Yes LNOK: Patti Story (W) Living Arrangements: Pt lives with his and 2 children (Ages 14 & 12) in a two story home with 2 steps to enter. Pt also has 2 adult children that live outside of the home ADLs/IADLs: Ind Transportation: Self, DME: Denies HHC/SNF: Denies Pt?s goal: Home Plan: Home no needs. 6-click is 24. Pt denies further needs at this time and states that he feels safe returning home with his and children once he is medically ready. Senait Parks RN, CM
[2024-08-31] MEDS: Pantoprazole Sodium 40 MG in 0.9% Normal Saline (100mL MB+) 100 ML 330 MG IV (10:26)
[2024-08-31] MEDS: 0.9% Saline Lock 10 ML Syringe IV ×4 (10:27→22:25)
[2024-09-01 05:11] VITALS: BP 109/67; PULSE 110; RESP 16; TEMP 36.9; O2SAT 97
[2024-09-01] MEDS: 0.9% Saline Lock 10 ML Syringe IV (05:16)
[2024-09-01] MEDS: Ketorolac 15 MG/ML Vial IV (05:16)
[2024-09-01 05:34] VITALS: BMI 39.6
[2024-09-01 06:05] LABS: Absolute Lymphocyte Count 1.99 X10^3/uL (0.83-4.51); Absolute Neutrophil Count 8.6 X10^3/uL (2.0-7.7); Basophil# 0.05 X10^3/uL; Basophil% 0.4 % (0-1); Eosinophil# 0.28 X10^3/uL; Eosinophils% 2.3 % (0-5); Hematocrit 41.7 % (40-54); Hemoglobin 14.5 g/dL (13.0-16.5); Lymphocyte # 1.99 X10^3/ul (0.83-4.51); Lymphocyte % 16.5 % (19-41); Mean Corp Hgb Conc 34.8 g/dL (32-36); Mean Corpuscular Hgb 30.5 pg (27.0-32.0); Mean Corpuscular Volume 87.6 fL (80-94); Mean Platelet Vol. 10.3 fl (6.2-12.0); Monocyte% 9.1 % (0-10); NRBC Flagged by Analyzer 0 % (0-5); Neutrophil # 8.57 X10^3/uL (2.7-7.7); Neutrophil % 71.3 % (47-70); Platelet Count 189 K/mm3 (150-450); RBC Distribution Width CV 13.3 % (11.6-14.6); RBC Distribution Width SD 42.5 fl (35.1-43.9); Red Blood Count 4.76 M/mm3 (4.6-6.2)
[2024-09-01 07:00] LABS: ALB/GLOB Ratio 0.9 RATIO (0.9-2.4); AST(SGOT) 20 U/L (15-37); Alanine Aminotransfer ALT/SGPT 53 U/L (16-61); Albumin, Serum 3.3 g/dL (3.2-5.0); Alkaline Phosphatase 51 U/L (45-117); Anion Gap 8 (5-15); BUN 16 mg/dL (7-18); BUN/Creat Ratio 13.9 RATIO (10-20); Calcium,Total 8.6 mg/dL (8.5-10.1); Chloride 102 mmol/L (98-107); Creatinine, Serum 1.15 mg/dL (0.70-1.30); EST Glomerular Filtration Rate 73 mL/min (>60); Est Glom Filt Rate - Afr Amer 88 mL/min (>60); Estimated Creatinine Clearance 109.64 ml/min; Globulin 3.5 g/dL (2.2-4.2); Glucose 128 mg/dL (74-106); Magnesium 2.3 mg/dL (1.6-2.6); Phosphorus 2.5 mg/dL (2.5-4.9); Potassium 4.1 mmol/L (3.5-5.1); Protein, Total 6.8 g/dL (6.4-8.2); Sodium Level 132 mmol/L (136-145)
[2024-09-01 07:23] VITALS: O2SAT 96
[2024-09-01 08:09] VITALS: BP 147/89; PULSE 80; RESP 18; TEMP 37.1; O2SAT 100
--- NOTE | 2024-09-01 08:39 | PCM.PN.HOSP ---
Reason for Visit Reason for Visit: Diagnoses Obesity, unspecified (08/30/24) Mixed hyperlipidemia (08/30/24) Hyperkalemia (08/30/24) Acute pancreatitis without necrosis or infection, unspecified (08/30/24) Unspecified abdominal pain (08/30/24) Acquired absence of other specified parts of digestive tract (08/30/24) Subjective Subjective Patient seen and symptoms significantly improved. Patient to be assessed for possible discharge Objective Data Objective Data Vital Signs: Vital Signs Temp Pulse Resp BP Pulse Ox O2 Del Method 98.8 F 80 18 147/89 H 100 Room Air 09/01/24 08:09 09/01/24 08:09 09/01/24 08:09 09/01/24 08:09 09/01/24 08:09 09/01/24 08:09 Oxygen Delivery Method Room Air Weight: 128.5 kg Body Mass Index (BMI) 39.6 Intake & Output: Intake and Output for Last 24 Hours 08/30/24 08/31/24 09/01/24 23:59 23:59 23:59 Intake Total 1010 / 1120 1570.00 / 1770.00 400 / 400 Balance 1010 / 1120 1570.00 / 1770.00 400 / 400 Lab / Micro Data 09/01/24 05:25 09/01/24 05:25 Labs: Laboratory Results - last 24 hr 08/31/24 08:23: Sodium 135 L, Potassium 4.1, Chloride 103, Carbon Dioxide 28.0, Anion Gap 4 L, BUN 12, Creatinine 1.07, Estim Creat Clear Calc 117.50, Est GFR (MDRD) Af Amer 95, Est GFR (MDRD) Non-Af 79, BUN/Creatinine Ratio 11.2, Glucose 74, Calcium 8.8, Phosphorus 3.6, Magnesium 2.4, Total Bilirubin 1.00, AST 61 H, ALT 78 H, Alkaline Phosphatase 57, Total Protein 6.7, Albumin 3.4, Globulin 3.3, Albumin/Globulin Ratio 1.0, Triglycerides 500 H 09/01/24 05:25: WBC 12.0 H, RBC 4.76, Hgb 14.5, Hct 41.7, MCV 87.6, MCH 30.5, MCHC 34.8, RDW Std Deviation 42.5, RDW Coeff of Annabel 13.3, Plt Count 189, MPV 10.3, Immature Gran % (Auto) 0.400, Neut % (Auto) 71.3 H, Lymph % (Auto) 16.5 L, [place] % (Auto) 9.1, Eos % (Auto) 2.3, Baso % (Auto) 0.4, Absolute Neuts (auto) 8.6 H, Absolute Lymphs (auto) 1.99, Nucleated RBC % 0, Sodium 132 L, Potassium 4.1, Chloride 102, Carbon Dioxide 23.0, Anion Gap 8, BUN 16, Creatinine 1.15, Estim Creat Clear Calc 109.64, Est GFR (MDRD) Af Amer 88, Est GFR (MDRD) Non-Af 73, BUN/Creatinine Ratio 13.9, Glucose 128 H, Calcium 8.6, Phosphorus 2.5, Magnesium 2.3, Total Bilirubin 1.00, AST 20, ALT 53, Alkaline Phosphatase 51, Total Protein 6.8, Albumin 3.3, Globulin 3.5, Albumin/Globulin Ratio 0.9 Physical Exam Narrative GENERAL: cooperative HEENT: Atraumatic; normocephalic EYES; Anicteric, Normal Conjunctiva NECK; supple, normal thyroid, RESPIRATORY: Diminished to auscultation CARDIOVASCULAR: Regular S1 S2, GI: soft, normoactive bowel sounds, : No Renal angle tenderness; EXTREMITIES: No edema, no clubbing, MUSCULOSKELETAL: no muscle wasting NEURO: Awake; no lateralizing signs. SKIN: No Rash PSYCH; Flat affect Assessment & Plan Assessment/Plan (1) Acute pancreatitis: QUALIFIERS: Acute pancreatitis complication: unspecified Pancreatitis type: unspecified pancreatitis type Qualified Code(s): K85.90 - Acute pancreatitis without necrosis or infection, unspecified (2) Elevated cholesterol with high triglycerides: (3) Intractable abdominal pain: (4) Hyperkalemia: (5) Obesity (BMI 30-39.9): (6) History of cholecystectomy: PLAN: Plan Patient is a 48-year-old gentleman who presented with abdominal pain and nausea was found to have elevated lipase levels consistent with acute pancreatitis admitted to monitored bed for further management 1. Acute pancreatitis ? Secondary to hypertriglyceridemia and alcohol use. Patient was admitted to the intensive care unit managed conservatively with bowel rest pain meds antinausea medication and subsequent monitoring with serial lipase levels ordered ? 4Patient seen and symptoms significantly improved. Patient to be assessed for possible discharge 2. Hypertriglyceridemia -patient was managed appropriately with insulin and D10. 3. Hyperkalemia ? Secondary to use of lisinopril, resolved repeat BMP ordered for monitor 4. Essential hypertension ? Patient is on lisinopril held on admission due to hyperkalemia resumed 5. Class II obesity with BMI of 39.9 ? Weight loss advised 6. DVT prophylaxis ? SC Lovenox Time spent in the patient's overall evaluation,decision-making process, review of diagnostic data, adjustment of management, discussion with other providers, nursing nursing and ancillary staff involved in patient's care documentation, 35 minutes
[2024-09-01] MEDS: Pantoprazole Sodium 40 MG Tablet PO (10:07)
--- NOTE | 2024-09-01 10:14 | PCM.DC.SUM ---
Providers Date of Admission: 08/30/24 Date of Discharge: 09/01/24 Primary Care Physician: Dr. Azar Mcfadden MD Reason For Visit: ACUTE PANCREATITIS Diagnosis Discharge Diagnosis (1) Acute pancreatitis: Status: Acute Code(s): K85.90 - Acute pancreatitis without necrosis or infection, unspecified Qualifiers: Pancreatitis type: unspecified pancreatitis type Acute pancreatitis complication: unspecified Qualified Code(s): K85.90 - Acute pancreatitis without necrosis or infection, unspecified (2) Elevated cholesterol with high triglycerides: Status: Acute Code(s): E78.2 - Mixed hyperlipidemia (3) Intractable abdominal pain: Status: Acute Code(s): R10.9 - Unspecified abdominal pain (4) Hyperkalemia: Status: Acute Code(s): E87.5 - Hyperkalemia (5) Obesity (BMI 30-39.9): Status: Acute Code(s): E66.9 - Obesity, unspecified (6) History of cholecystectomy: Status: Acute Code(s): Z90.49 - Acquired absence of other specified parts of digestive tract Plan Patient is a 48-year-old gentleman who presented with abdominal pain and nausea was found to have elevated lipase levels consistent with acute pancreatitis admitted to monitored bed for further management 1. Acute pancreatitis ? Secondary to hypertriglyceridemia and alcohol use. Patient was admitted to the intensive care unit managed conservatively with bowel rest pain meds antinausea medication and subsequent monitoring with serial lipase levels ordered ? 4Patient seen and symptoms significantly improved. Patient to be assessed for possible discharge 2. Hypertriglyceridemia -patient was managed appropriately with insulin and D10. ? Patient was discharged on statin therapy as well as fenofibrate 3. Hyperkalemia ? Secondary to use of lisinopril, resolved repeat BMP ordered for monitor 4. Essential hypertension ? Patient is on lisinopril held on admission due to hyperkalemia resumed 5. Class II obesity with BMI of 39.9 ? Weight loss advised 6. DVT prophylaxis ? SC Lovenox 7. Hyponatremia ? Secondary to beer potomania, sodium levels did remain stable 8. Chronic alcohol dependence ? Patient was counseled on cessation Time spent in the patient's overall evaluation,decision-making process, review of diagnostic data, adjustment of management, discussion with other providers, nursing nursing and ancillary staff involved in patient's care documentation, 35 minutes Medications at Discharge Home Medications lisinopril 10 mg tablet 10 mg PO DAILY bp 08/30/24 atorvastatin 40 mg tablet (Lipitor) 40 mg PO QHS #60 tabs 09/01/24 fenofibrate 160 mg tablet 160 mg PO DAILY #60 tabs 09/01/24 pantoprazole 40 mg tablet,delayed release 40 mg PO DAILY #60 tabs 09/01/24 Physical Exam Narrative GENERAL: cooperative HEENT: Atraumatic; normocephalic EYES; Anicteric, Normal Conjunctiva NECK; supple, normal thyroid, RESPIRATORY: Diminished to auscultation CARDIOVASCULAR: Regular S1 S2, GI: soft, normoactive bowel sounds, : No Renal angle tenderness; EXTREMITIES: No edema, no clubbing, MUSCULOSKELETAL: no muscle wasting NEURO: Awake; no lateralizing signs. SKIN: No Rash PSYCH; Flat affect Weight / BMI Weight Weight: 128.5 kg Body Mass Index (BMI) 39.6 ABG / Lab / Microbiology Data 09/01/24 05:25 09/01/24 05:25 Laboratory: Laboratory Results - last 24 hr 09/01/24 05:25: WBC 12.0 H, RBC 4.76, Hgb 14.5, Hct 41.7, MCV 87.6, MCH 30.5, MCHC 34.8, RDW Std Deviation 42.5, RDW Coeff of Annabel 13.3, Plt Count 189, MPV 10.3, Immature Gran % (Auto) 0.400, Neut % (Auto) 71.3 H, Lymph % (Auto) 16.5 L, Maverick % (Auto) 9.1, Eos % (Auto) 2.3, Baso % (Auto) 0.4, Absolute Neuts (auto) 8.6 H, Absolute Lymphs (auto) 1.99, Nucleated RBC % 0, Sodium 132 L, Potassium 4.1, Chloride 102, Carbon Dioxide 23.0, Anion Gap 8, BUN 16, Creatinine 1.15, Estim Creat Clear Calc 109.64, Est GFR (MDRD) Af Amer 88, Est GFR (MDRD) Non-Af 73, BUN/Creatinine Ratio 13.9, Glucose 128 H, Calcium 8.6, Phosphorus 2.5, Magnesium 2.3, Total Bilirubin 1.00, AST 20, ALT 53, Alkaline Phosphatase 51, Total Protein 6.8, Albumin 3.3, Globulin 3.5, Albumin/Globulin Ratio 0.9 D/C Instructions Discharge Diet: No restrictions Discharge Activity: Return to Normal Activity Call your doctor if you observe: Fever of 101 or Higher, Shortness of breath, Fainting spells and Chest pain DC O2, CPAP, BIPAP Needs Additional Home O2 Discharge instructions: No DC home with Oxygen: No Meaningful Use Info Meaningful Use Meaningful Use Diagnoses (Choose all that apply): None applicable Ischemic Stroke Statin Dosing Therapy Reference: STATIN DOSE THERAPY REFERENCE: * Patients > 75 years receive moderate or high dose statin therapy. * Patients 75 years or YOUNGER should receive HIGH intensity statin dose unless contraindicated. You will be required to document reason for non-treatment if statin daily dose does not meet guidelines. HIGH DOSE STATIN THERAPY DAILY Atorvastatin > than or = to 40 mg Rosuvastatin > than or = to 20 mg Amlodipine + Atorvastatin > than or = to 2.5/40 mg Ezetimibe + Simvastatin 10/80 mg Simvastatin 80mg Discharge Plan Admission Admit Date/Time: 08/30/24 21:16 Attending Provider: Arnie Yao Primary Care Provider: Azar Mcfadden Consulting Providers: Arnie Malik Discharge Orders/Prescriptions Prescriptions: New pantoprazole 40 mg Tablet,Delayed Release (Dr/Ec) 40 mg PO DAILY Qty: 60 0RF atorvastatin [Lipitor] 40 mg tablet 40 mg PO QHS Qty: 60 0RF fenofibrate 160 mg tablet 160 mg PO DAILY Qty: 60 0RF Continued lisinopril 10 mg tablet 10 mg PO DAILY Referrals / Follow Up: Azar Mcfadden MD [Primary Care Provider] - Within 1 Week Disposition Disposition (needs filled in before D/C Order can be placed): Home, Self Care Charges/Coding Visit Charges Inpatient E&M: 52890 Disch Hosp >30min
[2024-09-01 11:09] VITALS: BP 149/97; PULSE 97; RESP 18; TEMP 37; O2SAT 98
== END 2024-09-01 11:45 | disposition home or self-care (01) | DRG 439 ==
LOC: ED 20:58 → MS3 21:32 → ICU 23:55 → MS3 08-31 16:21
PROVIDERS: Admitting Provider Internal Medicine; Emergency Provider Emergency Medicine; PCP Family Medicine; Visit Provider Internal Medicine
DX: K85.90 Acute pancreatitis without necrosis or infection, unspecified (principal); E87.1 Hypo-osmolality and hyponatremia; Z68.39 Body mass index [BMI] 39.0-39.9, adult; E87.5 Hyperkalemia; E78.2 Mixed hyperlipidemia; E66.812 Obesity, class 2; Z79.899 Other long term (current) drug therapy; Z87.891 Personal history of nicotine dependence
CPT/HCPCS: 36415; 74177; 80053; 80061; 81001; 82077; 82962; 83690; 83735; 84100; 84443; 84478; 84484; 85025; 94668; 99282; 99406; J7030; Q9967; A4216; J2405; J3490

== ENCOUNTER → 2024-09-05 | Outpatient (CLI) | payer OTHER, SELFPAY ==
[2024-09-05 10:52] LABS: ALB/GLOB Ratio 0.9 RATIO (0.9-2.4); AST(SGOT) 46 U/L (15-37); Alanine Aminotransfer ALT/SGPT 111 U/L (16-61); Albumin, Serum 3.6 g/dL (3.2-5.0); Alkaline Phosphatase 53 U/L (45-117); Anion Gap 6 (5-15); BUN 18 mg/dL (7-18); BUN/Creat Ratio 16.7 RATIO (10-20); Calcium,Total 9.6 mg/dL (8.5-10.1); Chloride 100 mmol/L (98-107); Cholesterol 158 mg/dL (200); Creatinine, Serum 1.08 mg/dL (0.70-1.30); EST Glomerular Filtration Rate 78 mL/min (>60); Est Glom Filt Rate - Afr Amer 94 mL/min (>60); Globulin 4.2 g/dL (2.2-4.2); Glucose 111 mg/dL (74-106); High Density Lipoprotein 28 mg/dL; Lipase 130 U/L (13-75); Potassium 4.2 mmol/L (3.5-5.1); Protein, Total 7.8 g/dL (6.4-8.2); Sodium Level 134 mmol/L (136-145); Triglycerides 205 mg/dL; Very Low Density Lipoprotein 41 mg/dL (5-40)
== END | disposition home or self-care (01) ==
LOC: MFPLAB 08:58
PROVIDERS: PCP Family Medicine; Referring Provider Family Medicine; Visit Provider Family Medicine
DX: K85.90 Acute pancreatitis without necrosis or infection, unspecified (principal)
CPT/HCPCS: 36415; 80053; 80061; 83690

== ENCOUNTER → 2024-10-05 | Outpatient (CLI) | payer OTHER, SELFPAY ==
[2024-10-05 12:55] LABS: ALB/GLOB Ratio 1.2 RATIO (0.9-2.4); AST(SGOT) 34 U/L (15-37); Alanine Aminotransfer ALT/SGPT 90 U/L (16-61); Albumin, Serum 4.1 g/dL (3.2-5.0); Alkaline Phosphatase 63 U/L (45-117); Anion Gap 6 (5-15); BUN 16 mg/dL (7-18); BUN/Creat Ratio 15.4 RATIO (10-20); Calcium,Total 9.2 mg/dL (8.5-10.1); Chloride 105 mmol/L (98-107); Creatinine, Serum 1.04 mg/dL (0.70-1.30); EST Glomerular Filtration Rate 81 mL/min (>60); Est Glom Filt Rate - Afr Amer 99 mL/min (>60); Globulin 3.3 g/dL (2.2-4.2); Glucose 106 mg/dL (74-106); Lipase 150 U/L (13-75); Protein, Total 7.4 g/dL (6.4-8.2); Sodium Level 136 mmol/L (136-145)
== END | disposition home or self-care (01) ==
LOC: MFPLAB 09:43
PROVIDERS: PCP Family Medicine; Referring Provider Family Medicine; Visit Provider Family Medicine
DX: K85.90 Acute pancreatitis without necrosis or infection, unspecified (principal)
CPT/HCPCS: 36415; 80053; 83690

== ENCOUNTER → 2024-10-27 | Outpatient (CLI) | payer BC, SELFPAY ==
[2024-10-27 11:50] LABS: ALB/GLOB Ratio 1.2 RATIO (0.9-2.4); AST(SGOT) 31 U/L (15-37); Alanine Aminotransfer ALT/SGPT 65 U/L (16-61); Albumin, Serum 4.1 g/dL (3.2-5.0); Alkaline Phosphatase 60 U/L (45-117); Anion Gap 6 (5-15); BUN 16 mg/dL (7-18); BUN/Creat Ratio 13.8 RATIO (10-20); Calcium,Total 9.4 mg/dL (8.5-10.1); Chloride 104 mmol/L (98-107); Cholesterol 86 mg/dL (200); Creatinine, Serum 1.16 mg/dL (0.70-1.30); EST Glomerular Filtration Rate 72 mL/min (>60); Est Glom Filt Rate - Afr Amer 87 mL/min (>60); Globulin 3.3 g/dL (2.2-4.2); Glucose 100 mg/dL (74-106); High Density Lipoprotein 34 mg/dL; Potassium 4.4 mmol/L (3.5-5.1); Protein, Total 7.4 g/dL (6.4-8.2); Sodium Level 138 mmol/L (136-145); Triglycerides 192 mg/dL; Very Low Density Lipoprotein 38 mg/dL (5-40)
[2024-10-27 13:37] LABS: Hemoglobin A1c 5.3 % (3.8-5.6)
== END | disposition home or self-care (01) ==
PROVIDERS: PCP Family Medicine; Referring Provider Internal Medicine Gastroenterology; Visit Provider Internal Medicine Gastroenterology
DX: K85.90 Acute pancreatitis without necrosis or infection, unspecified (principal)
CPT/HCPCS: 36415; 80053; 80061; 83036

== ENCOUNTER → 2025-05-15 | Outpatient (CLI) | payer BC, SELFPAY ==
[2025-05-15 14:15] LABS: AST(SGOT) 28 U/L (<=37); Alanine Aminotransfer ALT/SGPT 47 U/L (<=46); Albumin, Serum 4.4 g/dL (3.5-5.0); Alkaline Phosphatase 57 U/L (40-129); Anion Gap 14 (5-15); BUN 15 mg/dL (4-19); BUN/Creat Ratio 14.5 RATIO (10-20); Calcium,Total 9.5 mg/dL (7.6-11.0); Carbon Dioxide 22.0 mmol/L (21.0-32.0); Chloride 101 mmol/L (98-108); Cholesterol 107 mg/dL (<=200); Globulin 2.6 g/dL (2.2-4.2); Glucose 106 mg/dL (70-99); Lipase 52 U/L (13-75); Low Density Lipoprotein Calc. 30 mg/dL; Potassium 4.2 mmol/L (3.3-5.1); Triglycerides 222 mg/dL; Very Low Density Lipoprotein 44 mg/dL (5-40); cholesterol:hdl ratio screen 3.27
== END | disposition home or self-care (01) ==
LOC: MFPLAB 09:39
PROVIDERS: PCP Family Medicine; Visit Provider Family Medicine
DX: I10 Essential (primary) hypertension (principal); K85.90 Acute pancreatitis without necrosis or infection, unspecified
CPT/HCPCS: 36415; 80053; 80061; 83690